=== PATIENT | female | born 1945 | race Caucasian/White ===

== ENCOUNTER 2017-12-30 14:11 | Outpatient (CLI) | payer MEDICARE ==
--- NOTE | 2017-12-30 16:08 | BD ---
Exam: DEXA Bone Density 12/30/17 COMPARISON: 01/09/16. HISTORY: 72-year-old postmenopausal female for screening. Lumbar Spine: BMD (g/cm2) L1 0.788 T-Score: -0.8 L2 0.952 T-Score: -0.7 L3 0.834 T-Score: -2.3 L4 0.797 T-Score: -2.4 L1-L4 0.841 T-Score: -1.9 Left Femoral Neck: 0.630 T-Score: -2.0 Total Femur: 0.815 T-Score: -1.0 Impression: Osteopenia. This patient has a ten year WHO fracture risk for a major osteoporotic fracture of 12% an d a hip fracture of 2.7%. POS: [facility]
== END 2017-12-30 14:12 | disposition home or self-care (01) ==
LOC: BICMAMMO 14:11
PROVIDERS: ATTEND Internal Medicine
DX: Z12.31 Encounter for screening mammogram for malignant neoplasm of breast (principal); M81.0 Age-related osteoporosis without current pathological fracture; M85.80 Other specified disorders of bone density and structure, unspecified site; R92.1 Mammographic calcification found on diagnostic imaging of breast
CPT/HCPCS: 77063; 77067; 77080

== ENCOUNTER 2020-01-25 10:01 | Outpatient (CLI) | payer MEDICARE ==
--- NOTE | 2020-01-25 11:03 | MMO ---
Bilateral MAMMO Bilat Screen [facility]. CLINICAL HISTORY: Patient is 74 years old and is seen for screening. The patient has no family history of breast cancer. The patient has no personal history of cancer. The patient has a history of right Excisional Biopsy in 1980 - benign and bilateral Cyst Aspiration in 1978 - benign. VIEWS: The views performed were: bilateral craniocaudal with tomosynthesis and bilateral mediolateral oblique with tomosynthesis. FILMS COMPARED: The present examination has been compared to prior imaging studies performed at [facility] on 01/10/2013, 01/20/2014, 01/09/2016 and 12/30/2017. This study has been interpreted with the assistance of computer-aided detection. MAMMOGRAM FINDINGS: There are scattered fibroglandular densities. Benign calcifications are noted bilaterally. There are no suspicious masses, suspicious calcifications, or new areas of architectural distortion. IMPRESSION: THERE IS NO MAMMOGRAPHIC EVIDENCE OF MALIGNANCY. A ROUTINE FOLLOW-UP MAMMOGRAM IN 1 YEAR IS RECOMMENDED. THE RESULTS OF THIS EXAM WERE SENT TO THE PATIENT. ACR BI-RADS Category 2 - Benign finding MAMMOGRAPHY NOTE: 1. A negative mammogram report should not delay a biopsy if a dominant of clinically suspicious mass is present. 2. Approximately 10% to 15% of breast cancers are not detected by mammography. 3. Adenosis and dense breasts may obscure an underlying neoplasm. Reported by: ROMAN CANO MD Electonically Signed: [id number]
== END 2020-01-25 10:02 | disposition home or self-care (01) ==
LOC: BICMAMMO 10:01
PROVIDERS: ATTEND Internal Medicine
DX: Z12.31 Encounter for screening mammogram for malignant neoplasm of breast (principal); Z91.89 Other specified personal risk factors, not elsewhere classified
CPT/HCPCS: 77063; 77067

== ENCOUNTER 2022-03-14 11:26 | Outpatient (CLI) | payer MEDICARE | END 2022-03-14 11:27 | disposition home or self-care (01) | LOC: BICMAMMO 11:26 | PROVIDERS: ATTEND Internal Medicine | DX: Z12.31 Encounter for screening mammogram for malignant neoplasm of breast (principal); Z91.89 Other specified personal risk factors, not elsewhere classified; Z98.890 Other specified postprocedural states | CPT/HCPCS: 77063; 77067 ==

== ENCOUNTER 2024-04-22 14:23 | Outpatient (CLI) | payer MEDICARE | END 2024-04-22 14:24 | disposition home or self-care (01) | LOC: BICMAMMO 14:23 | PROVIDERS: ATTEND Internal Medicine | DX: N63.20 Unspecified lump in the left breast, unspecified quadrant (principal) | CPT/HCPCS: 76642; 77065; G0279 ==